=== PATIENT | male | born 1940 | race Caucasian/White ===

== ENCOUNTER 2016-10-01 11:11 | Day surgery (SDC) | payer MEDICARE ==
[~2016-10-01] VITALS: Ht 180.3 cm; Wt 78.0 kg
--- NOTE | 2016-10-01 08:37 | PCM.HPANE ---
Patient Data Surgeon Admitting Provider: Attending Provider:Oscar Wong MD Primary Care Physician:Kulwinder Ray MD Other Provider:Cleo Robertoingham Anesthesia Reason for Visit Colon Polyp Ht/WT & BMI Body Mass Index Allergies Coded Allergies: No Known Allergies (Unverified , 08/21/12) Past Anesthesia History Anesthesia History: Denies:: Abnormal Airway, Difficult Intubation Medications Hypertension Medication: Yes Home Meds Incl Beta Zackery: No Reported Medications Multivit-Min/FA/Lycopen/Lutein (Centrum Silver Men Tablet)300 Mcg-600 Mcg-300 Mcg Tablet1 Each PO 10/01/16 Aspirin 81 Mg Oinmme44 Mg PO DAILY Ref 0 10/01/16 Hydrochlorothiazide 12.5 Mg Vjlvcxy33.5 Mg PO DAILY 30 Days Ref 0 10/01/16 Sildenafil Citrate (Viagra)25 Mg Ymvwac36 Mg PO UD PRN for sexual activity Ref 0 09/30/16 Tamsulosin (Flomax)0.4 Mg Capsule0.4 Mg PO DAILY Ref 0 09/30/16 Simvastatin 10 Mg Nyjedw23 Mg PO HS Ref 0 09/30/16 Century-3S/Dha/Epa/Fish Oil (Century Power 1,050 mg Softgel)1,050 Mg Capsule1,050 Mg PO DAILY 09/30/16 Mu-Vits-Min Th/Lycopene/Lutein (Centrum Silver Tablet)1 Each Tablet1 Each PO DAILY 08/20/12 Hydrochlorothiazide-Expunged, Do Not Renew! 12.5 Mg Sffueb72.5 Mg PO DAILY 08/20/12 Aspirin-Expunged Drug, Do Not Renew! 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 Category 1B: Patient has history of documented sleep apnea, and HAS received any narcotic , sedative or anesthesia administration during this stay Category 2: Patient has SUSPECTED Obstructive Sleep Apnea, and HAS received any narcotic , sedative or anesthesia administration during this stay. Category 3: Patient has SUSPECTED Obstructive Sleep Apnea and HAS NOT received narcotic, sedative or anesthesia administration during this stay. Category 4: Outpatient in Procedural Areas with known sleep apnea or who screen positive for High Risk via the STOP/BANG questionnaire. Plan Impression Patient chart reviewed, patient interviewed and anesthestic plan with risks, benefits, and alternatives discussed, and informed consent obtained. ASA Physical Status: ASA2 Mod Systemic Disease Anesthetic Plan: MAC Bene/Risks/Altern/Consents: Yes HP Complete Prior to Induction: Yes Yury Adames MD Oct 01, 2016 08:37
[~2016-10-01 11:11] MED LIST: ASPI81TA2 PO; HYDR12.55 PO; MULT-885 PO; OMEG1050 PO; SIMV10TA4 PO; TAMS0.4C98 PO; VIAG25T PO
[2016-10-01] MEDS ORDERED: fentaNYL-PF 50 mCg/mL 2 mL Inj ONE (11:12)
[2016-10-01] MEDS ORDERED: Ketamine 10 mg/mL 20 mL Inj ONE (11:12)
[2016-10-01] MEDS ORDERED: Propofol 10,000 mCg/mL 20 mL Inj ONE (11:12)
[2016-10-01 11:31] VITALS: BP 142/74; PULSE 76; RESP 14; O2SAT 96
[2016-10-01] MEDS ORDERED: ASPI-973 PO (11:34)
[2016-10-01] MEDS ORDERED: HYDR12.5 PO (11:34)
[2016-10-01] MEDS ORDERED: MULT-1104 PO (11:34)
[2016-10-01] MEDS ORDERED: Ondansetron 2 mg/mL 2 mL Inj IVPUSH PRN (12:50)
[2016-10-01] MEDS ORDERED: Lactated Ringer's 1,000 ML IV SCH (12:50)
[2016-10-01] MEDS ORDERED: MetoCLOpramide 5 mg/mL 2 mL Inj IVPUSH PRN (12:50)
[2016-10-01] MEDS: Lactated Ringer's 1,000 ML IV ONE ×2 (12:51→13:21)
[2016-10-01 13:27] VITALS: BP 102/59; PULSE 64; RESP 16; O2SAT 95
[2016-10-01 13:38] VITALS: BP 103/64; PULSE 70; RESP 16; O2SAT 98
[2016-10-01 13:47] VITALS: BP 123/74; PULSE 72; RESP 16; O2SAT 98
--- NOTE | 2016-10-01 15:28 | PCM.ANEP1 ---
Post Anesthesia Phase 1 PACU Phase 1 Assessment Vital Signs Vital Signs Date Time Temp Pulse Resp B/P Pulse Ox O2 Delivery O2 Flow Rate FiO2 10/01/16 13:47 72 16 123/74 98 Room Air 10/01/16 13:38 70 16 103/64 98 Room Air 10/01/16 13:27 36.2 64 16 102/59 95 Room Air 10/01/16 11:31 76 14 142/74 96 Room Air Anesthetic Administered: MAC Level of Alertness: Awake, talking GARCIA's with Equal Strength: Yes Pain: No Nausea or Vomiting: No Oxygen Delivery: Nasal Cannula Dermatome Level: Full Sensation Yury Adames MD Oct 01, 2016 15:28
--- NOTE | 2016-10-01 15:29 | PCM.ANEP2 ---
Post Anesthesia Evaluation ASA/CMS Post Anesthesia VS in Patient's Normal Range?: Yes Resp Stable; Airway Patent?: Yes CV Function & Hydration Stable: Yes Mental Status Recovered?: Yes Pain control Satisfactory?: Yes N/V Control Satisfactory?: Yes Yury Adames MD Oct 01, 2016 15:29
--- NOTE | 2016-10-01 16:55 | ENDO ---
[address] [address] ENDOSCOPY PROCEDURE PATIENT: GENOVEVA RAMIREZ : 1940 MR#: [id number] ADMIT: 10/01/2016 JOB ID: [id number] PROCEDURE: Colonoscopy. INDICATIONS: A 76-year-old male with a personal history of colon polyps. EQUIPMENT: [email or web address]. SEDATION: Monitored anesthesia as provided by Dr. Yury Adames. COMPLICATIONS: None identified. Bowel prep fair. PROCEDURE INFORMATION: After the risks and benefits were explained, written and verbal informed consent was obtained, the patient was brought into the endoscopy suite and placed into the left lateral decubitus position. Sedation was achieved using the above-stated medications with the addition of oxygen via nasal cannula. A digital rectal examination was accomplished. No significant pathology appreciated. The scope was introduced into the rectum and advanced to the cecum as identified by the appendiceal orifice and ileocecal valve. The scope was slowly withdrawn to carefully examine the mucosa for any defects or lesions. Retroflexed views were accomplished in the rectum. The colon was decompressed. The scope removed from the patient who tolerated the procedure well. FINDINGS: Fairly extensive diverticula were seen all throughout the left and even up into the mid colon. I did not see any significant polyps or mass lesions. No inflammatory features identified. Retroflexed views from within the rectum were unremarkable. ENDOSCOPIC DIAGNOSES: Diverticulosis. RECOMMENDATIONS: Considering past history of colon polyps, repeat colonoscopy five years.
== END 2016-10-01 23:59 | disposition home or self-care (01) ==
LOC: END 11:11
PROVIDERS: ATTEND Internal Medicine Gastroenterology
DX: Z12.11 Encounter for screening for malignant neoplasm of colon (principal); K57.30 Diverticulosis of large intestine without perforation or abscess without bleeding; Z86.010 Personal history of colon polyps; Z79.82 Long term (current) use of aspirin; Z79.899 Other long term (current) drug therapy
CPT/HCPCS: G0105; J2250; J3010; J7120